=== PATIENT | male | born 1985 | race Caucasian/White ===

== ENCOUNTER 2018-03-30 17:46 | Emergency (ER) | payer OTHER ==
[~2018-03-30] VITALS: Ht 177.8 cm; Wt 79.4 kg
[~2018-03-30 17:46] MED LIST: AMBIEN10 MG; ATIVAN1 MG; DICLOFENAC SODI50 MG PO; REMERON30 MG; RESTORIL30 M1; WELLBUTRIN SR150 MG; ZYPREXA20 MG
== END 2018-03-30 21:20 | disposition home or self-care (01) ==
LOC: ER 17:46
DX: B34.9 Viral infection, unspecified (principal)